=== PATIENT | male | born 1975 | race African-American/Black ===

== ENCOUNTER 2017-12-15 04:50 | Emergency (ER) | payer MEDICAID ==
[~2017-12-15] VITALS: Ht 175.3 cm; Wt 107.0 kg
[2017-12-15] MEDS ORDERED: HYDROCODONE/ACETAMINOPHEN 5/325MG TABLET PO ONE (07:00)
[2017-12-15] MEDS ORDERED: IBUPROFEN 600MG TABLET PO ONE (07:00)
[2017-12-15 08:11] VITALS: BP 128/69
== END 2017-12-15 08:23 | disposition home or self-care (01) ==
LOC: ER 04:50
DX: M10.071 Idiopathic gout, right ankle and foot (principal); Z87.81 Personal history of (healed) traumatic fracture
CPT/HCPCS: 99283; Z7610

== ENCOUNTER 2018-01-08 05:58 | Emergency (ER) | payer MEDICAID ==
[~2018-01-08] VITALS: Ht 297.2 cm; Wt 107.5 kg
[2018-01-08] MEDS ORDERED: ACETAMINOPHEN WITH CODEINE 300/30MG TABLET PO ONE (07:00)
[2018-01-08 09:58] VITALS: BP 144/80
== END 2018-01-08 10:01 | disposition home or self-care (01) ==
LOC: ER 05:58
DX: J06.9 Acute upper respiratory infection, unspecified (principal); M79.1 Myalgia
CPT/HCPCS: 71045; 87804; 99285; Z7610

== ENCOUNTER 2018-01-12 19:04 | Emergency (ER) | payer MEDICAID ==
[~2018-01-12] VITALS: Ht 175.3 cm; Wt 120.0 kg
[2018-01-12] MEDS ORDERED: KETOROLAC 30MG/ML VIAL IM ONE ×2 (20:15→22:15)
[2018-01-12] MEDS ORDERED: DIAZEPAM 5 MG TABLET PO ONE (20:15)
[2018-01-12] MEDS ORDERED: MORPHINE SULFATE 10 MG/ML CPJ IM ONE ×2 (20:15→22:15)
[2018-01-13 01:12] VITALS: BP 116/71
== END 2018-01-13 01:14 | disposition home or self-care (01) ==
LOC: ER 19:31
DX: S29.012A Strain of muscle and tendon of back wall of thorax, initial encounter (principal); X58.XXXA Exposure to other specified factors, initial encounter; Y93.89 Activity, other specified; Y92.89 Other specified places as the place of occurrence of the external cause; Y99.8 Other external cause status; Z98.890 Other specified postprocedural states
CPT/HCPCS: 71250; 96372; 99284; J1885; J2270

== ENCOUNTER 2018-06-27 07:10 | Emergency (ER) | payer MEDICAID ==
[~2018-06-27] VITALS: Ht 172.7 cm; Wt 99.4 kg
[2018-06-27 07:48] VITALS: BP 116/74
[2018-06-27] MEDS ORDERED: IBUPROFEN 600MG TABLET PO ONE (08:15)
[2018-06-27] MEDS ORDERED: HYDROCODONE/ACETAMINOPHEN 5/325MG TABLET PO ONE (08:15)
== END 2018-06-27 09:00 | disposition home or self-care (01) ==
LOC: ER 08:04
DX: M10.9 Gout, unspecified (principal)
CPT/HCPCS: 99283

== ENCOUNTER 2018-10-14 02:09 | Emergency (ER) | payer MEDICAID ==
[~2018-10-14] VITALS: Ht 175.3 cm; Wt 97.1 kg
[2018-10-14] MEDS ORDERED: KETOROLAC 60MG/2ML VIAL IM STA ×2 (04:13→04:25)
[2018-10-14] MEDS ORDERED: METHYLPREDNISOLONE SOD SUCC 125 MG/2 ML VIAL IM STA (04:25)
[2018-10-14 04:38] VITALS: BP 110/66
== END 2018-10-14 06:13 | disposition home or self-care (01) ==
LOC: ER 02:09
DX: M10.071 Idiopathic gout, right ankle and foot (principal)
CPT/HCPCS: 96372; 99283; J1885; J2930

== ENCOUNTER 2018-10-22 23:21 | Emergency (ER) | payer MEDICAID ==
[~2018-10-22] VITALS: Ht 175.3 cm; Wt 89.0 kg
[2018-10-23 00:17] VITALS: BP 123/63
== END 2018-10-23 03:36 | disposition left against medical advice (07) ==
LOC: ER 23:21
DX: Z53.21 Procedure and treatment not carried out due to patient leaving prior to being seen by health care provider (principal)

== ENCOUNTER 2019-07-18 01:10 | Emergency (ER) | payer MEDICAID ==
[~2019-07-18] VITALS: Ht 175.3 cm; Wt 89.0 kg
[2019-07-18] MEDS ORDERED: KETOROLAC 60MG/2ML VIAL IM STA (02:12)
[2019-07-18 03:02] VITALS: BP 120/75
== END 2019-07-18 03:03 | disposition home or self-care (01) ==
LOC: ER 01:10
DX: M10.9 Gout, unspecified (principal); Z98.890 Other specified postprocedural states
CPT/HCPCS: 96372; 99283; J1885

== ENCOUNTER 2019-07-22 16:57 | Emergency (ER) | payer MEDICAID ==
[~2019-07-22] VITALS: Ht 175.3 cm; Wt 88.5 kg
[2019-07-22 17:02] VITALS: BP 133/91
[2019-07-22] MEDS ORDERED: BACITRACIN ZINC OINT UDPKT TOP ONE (17:30)
== END 2019-07-22 18:21 | disposition home or self-care (01) ==
LOC: ER 16:57
DX: S80.211A Abrasion, right knee, initial encounter (principal); M20.012 Mallet finger of left finger(s); Z98.890 Other specified postprocedural states; W01.0XXA Fall on same level from slipping, tripping and stumbling without subsequent striking against object, initial encounter; Y93.89 Activity, other specified; Y92.89 Other specified places as the place of occurrence of the external cause; Y99.8 Other external cause status
CPT/HCPCS: 29130; 73130; 99283

== ENCOUNTER 2020-02-28 05:46 | Emergency (ER) | payer MEDICAID ==
[~2020-02-28] VITALS: Ht 175.3 cm; Wt 91.0 kg
[2020-02-28 05:49] VITALS: BP 158/94
[2020-02-28] MEDS ORDERED: CEFTRIAXONE SODIUM 250 MG/VIAL IM ONE (06:45)
[2020-02-28] MEDS ORDERED: AZITHROMYCIN 500 MG TABLET PO ONE (06:45)
[2020-02-28] MEDS ORDERED: LIDOCAINE HCL 1% 20ML VIAL (Pyxis) INJ INFIL ONE (07:00)
== END 2020-02-28 07:20 | disposition home or self-care (01) ==
LOC: ER 05:46
DX: A54.9 Gonococcal infection, unspecified (principal); A74.9 Chlamydial infection, unspecified; M19.90 Unspecified osteoarthritis, unspecified site; Z87.81 Personal history of (healed) traumatic fracture; Z98.890 Other specified postprocedural states
CPT/HCPCS: 96372; 99283; J0696; J3490

== ENCOUNTER 2020-09-01 02:26 | Emergency (ER) | payer MEDICAID ==
[~2020-09-01] VITALS: Ht 172.7 cm; Wt 91.0 kg
[2020-09-01 02:29] VITALS: BP 103/48
[2020-09-01] MEDS ORDERED: ACETAMINOPHEN 325MG TABLET PO ONE (04:30)
== END 2020-09-01 05:00 | disposition left against medical advice (07) ==
LOC: ER 02:51
DX: R51.9 Headache, unspecified (principal); M54.2 Cervicalgia; Y04.0XXA Assault by unarmed brawl or fight, initial encounter; Y07.04 Female partner, perpetrator of maltreatment and neglect; Y93.89 Activity, other specified; Y92.89 Other specified places as the place of occurrence of the external cause
CPT/HCPCS: 93005; 99283

== ENCOUNTER 2021-09-17 04:26 | Emergency (ER) | payer MEDICAID ==
[~2021-09-17] VITALS: Ht 172.7 cm; Wt 95.2 kg
[2021-09-17] MEDS ORDERED: IBUPROFEN 600MG TABLET PO ONE (07:15)
[2021-09-17] MEDS ORDERED: IBUP-2029 MT (08:24)
[2021-09-17 09:05] VITALS: BP 148/86
== END 2021-09-17 09:06 | disposition home or self-care (01) ==
LOC: ER 04:26
DX: S50.01XA Contusion of right elbow, initial encounter (principal); Z87.81 Personal history of (healed) traumatic fracture; W01.0XXA Fall on same level from slipping, tripping and stumbling without subsequent striking against object, initial encounter; Y93.89 Activity, other specified; Y92.018 Other place in single-family (private) house as the place of occurrence of the external cause
CPT/HCPCS: 73070; 99283

== ENCOUNTER 2021-09-20 22:45 | Emergency (ER) | payer MEDICAID ==
[~2021-09-20] VITALS: Ht 175.3 cm; Wt 91.0 kg
[~2021-09-20 22:45] MED LIST: IBUP-2029 MT
[2021-09-21] MEDS ORDERED: CEFTRIAXONE SODIUM 500 MG/VIAL IM ONE (01:00)
[2021-09-21] MEDS ORDERED: LIDOCAINE HCL 1% 20ML VIAL (Pyxis) INJ INFIL ONE (01:00)
[2021-09-21] MEDS ORDERED: AZITHROMYCIN 500 MG TABLET PO ONE (01:00)
[2021-09-21 02:48] VITALS: BP 122/87
[2021-09-24 04:09] LABS: NEISSERIA GONORRHOEAE NAA Negative (Negative)
== END 2021-09-21 01:45 | disposition home or self-care (01) ==
LOC: ER 22:45
DX: Z20.2 Contact with and (suspected) exposure to infections with a predominantly sexual mode of transmission (principal)
CPT/HCPCS: 87491; 87591; 96372; 99283; J0696; J3490

== ENCOUNTER 2022-09-20 03:07 | Emergency (ER) | payer MEDICAID ==
[~2022-09-20] VITALS: Ht 172.7 cm; Wt 88.0 kg
[2022-09-20 03:28] VITALS: BP 134/84
[2022-09-20] MEDS ORDERED: CETI10TA6 MT (04:12)
[2022-09-20] MEDS ORDERED: DEXAMETHASONE 4MG TABLET PO ONE (04:15)
[2022-09-20] MEDS ORDERED: DEXAMETHASONE 4MG/ML 1ML VIAL IM ONE (05:00)
== END 2022-09-20 04:58 | disposition home or self-care (01) ==
LOC: ER 03:07
DX: R21 Rash and other nonspecific skin eruption (principal)
CPT/HCPCS: 96372; 99283; J1100; J8540; Z7610

== ENCOUNTER 2022-09-22 00:12 | Emergency (ER) | payer MEDICAID ==
[~2022-09-22] VITALS: Ht 175.3 cm; Wt 87.4 kg
[~2022-09-22 00:12] MED LIST changes: +CETI10TA6 MT
[2022-09-22 00:19] VITALS: BP 115/71
== END 2022-09-22 04:34 | disposition left against medical advice (07) ==
LOC: ER 00:12
DX: Z53.21 Procedure and treatment not carried out due to patient leaving prior to being seen by health care provider (principal)
CPT/HCPCS: 99281

== ENCOUNTER 2022-09-25 03:33 | Emergency (ER) | payer MEDICAID ==
[~2022-09-25] VITALS: Ht 172.7 cm; Wt 92.0 kg
[2022-09-25 03:38] VITALS: BP 120/93
[2022-09-25] MEDS ORDERED: DIPHENHYDRAMINE 50MG/ML VIAL IM NR (04:30)
[2022-09-25] MEDS ORDERED: HYDR-3735 PO (04:40)
[2022-09-25] MEDS ORDERED: P50 PO (04:40)
[2022-09-25] MEDS ORDERED: HYDR453.3 TP (04:40)
== END 2022-09-25 05:10 | disposition home or self-care (01) ==
LOC: ER 03:33
DX: L25.9 Unspecified contact dermatitis, unspecified cause (principal)
CPT/HCPCS: 87070; 87430; 96372; 99283; J1200; Z7610

== ENCOUNTER 2022-10-01 05:17 | Emergency (ER) | payer MEDICAID ==
[~2022-10-01] VITALS: Ht 172.7 cm; Wt 93.4 kg
[~2022-10-01 05:17] MED LIST changes: +HYDR-3735 PO; +HYDR453.3 TP; +P50 PO
[2022-10-01] MEDS ORDERED: IBUPROFEN 800MG TABLET PO ONE (06:15)
[2022-10-01] MEDS ORDERED: TOPUD PO (07:01)
[2022-10-01] MEDS ORDERED: AMOX1TAB16 PO (07:12)
[2022-10-01] MEDS ORDERED: IBUPROFEN 400MG TABLET PO SCH (07:30)
[2022-10-01 07:58] VITALS: BP 142/87
== END 2022-10-01 08:01 | disposition home or self-care (01) ==
LOC: ER 05:17
DX: S02.2XXA Fracture of nasal bones, initial encounter for closed fracture (principal); Z79.899 Other long term (current) drug therapy; Y08.89XA Assault by other specified means, initial encounter; Y93.89 Activity, other specified; Y92.89 Other specified places as the place of occurrence of the external cause; Y99.8 Other external cause status
CPT/HCPCS: 70486; 99284

== ENCOUNTER 2022-10-19 03:39 | Emergency (ER) | payer MEDICAID, OTHER ==
[~2022-10-19] VITALS: Ht 172.7 cm; Wt 92.5 kg
[~2022-10-19 03:39] MED LIST changes: +AMOX1TAB16 PO; +TOPUD PO
[2022-10-19 04:25] VITALS: O2SAT 98
[2022-10-19] MEDS ORDERED: COLC0.6C3 MT (04:58)
[2022-10-19] MEDS ORDERED: COLCHICINE 0.6MG TABLET PO ONE (05:00)
[2022-10-19] MEDS ORDERED: KETOROLAC 60MG/2ML VIAL IM ONE (05:00)
[2022-10-19 05:05] VITALS: BP 122/80
[2022-10-19 05:14] VITALS: PULSE 81; RESP 16; TEMP 98.4
== END 2022-10-19 05:00 | disposition home or self-care (01) ==
LOC: ER 03:39
DX: M25.572 Pain in left ankle and joints of left foot (principal); Z98.890 Other specified postprocedural states
CPT/HCPCS: 96372; 99283; J1885; Z7610

== ENCOUNTER 2023-01-02 03:36 | Emergency (ER) | payer MEDICAID, OTHER ==
[~2023-01-02] VITALS: Ht 172.7 cm; Wt 94.4 kg
[~2023-01-02 03:36] MED LIST changes: +COLC0.6C3 MT
[2023-01-02 03:45] VITALS: BP 126/72; PULSE 98; RESP 18; TEMP 98.6; O2SAT 100
== END 2023-01-02 05:45 | disposition left against medical advice (07) ==
LOC: ER 03:36
DX: Z53.21 Procedure and treatment not carried out due to patient leaving prior to being seen by health care provider (principal)
CPT/HCPCS: 99281

== ENCOUNTER 2023-01-04 00:49 | Emergency (ER) | payer OTHER ==
[2023-01-04] MEDS ORDERED: AMOX1TAB16 MT (01:50)
[2023-01-04] MEDS ORDERED: COLC0.6C3 MT (01:50)
[2023-01-04] MEDS ORDERED: TETANUS, DIPHTHERIA, PERTUSSIS VAC/PF 0.5ML (>10YR OLD) IM ONE (02:00)
[2023-01-04] MEDS ORDERED: KETOROLAC 30MG/ML VIAL IM ONE (02:00)
[2023-01-04 02:06] VITALS: BP 133/75; PULSE 86; RESP 17; TEMP 98.2
== END 2023-01-04 02:07 | disposition home or self-care (01) ==
LOC: ER 00:49
DX: S31.159A Open bite of abdominal wall, unspecified quadrant without penetration into peritoneal cavity, initial encounter (principal); I10 Essential (primary) hypertension; W54.0XXA Bitten by dog, initial encounter; Y93.89 Activity, other specified; Y92.89 Other specified places as the place of occurrence of the external cause; Y99.8 Other external cause status
CPT/HCPCS: 99283

== ENCOUNTER 2023-01-16 04:42 | Emergency (ER) | payer OTHER ==
[~2023-01-16] VITALS: Ht 172.7 cm; Wt 97.0 kg
[~2023-01-16 04:42] MED LIST changes: +AMOX1TAB16 MT
[2023-01-16 05:07] VITALS: TEMP 97.9; O2SAT 98
[2023-01-16] MEDS ORDERED: HYDROCODONE/ACETAMINOPHEN 5/325MG TABLET PO ONE (05:30)
[2023-01-16] MEDS ORDERED: IBUPROFEN 600MG TABLET PO ONE (05:30)
[2023-01-16 05:34] VITALS: BP 118/76; PULSE 76; RESP 16
[2023-01-16 05:56] LABS: BASOPHILS % 0.9 % (0.0-2.0); EOSINOPHILS % 5.7 % (0.0-5.0); HEMATOCRIT. 39.9 % (42.0-52.0); HEMOGLOBIN. 13.4 g/dL (14.0-18.0); LYMPHOCYTES % 28.7 % (20.0-50.0); MEAN CORPUSCULAR HGB CONC 33.7 g/dL (31.0-37.0); MEAN CORPUSCULAR VOLUME 80.1 fL (80.0-94.0); MEAN PLATELET VOLUME 9.5 fl (7.4-10.4); MONOCYTES % 5.7 % (2.0-8.0); PLATELET 210 x1000/uL (130-400); RED BLOOD CELL COUNT 4.98 mill/uL (4.7-6.1); RED CELL DISTRIBUTION WIDTH 14.3 % (11.6-14.6); WHITE BLOOD COUNT 8.8 x1000/uL (4.5-11.0)
[2023-01-16 05:58] LABS: CLARITY URINE CLEAR (CLEAR); COLOR URINE YELLOW (YELLOW); GLUCOSE URINE NEGATIVE (NEGATIVE); KETONES URINE NEGATIVE (NEGATIVE); LEUKOCYTE ESTERASE URINE NEGATIVE (NEGATIVE); NITRITE URINE NEGATIVE (NEGATIVE); OCCULT BLOOD URINE NEGATIVE (NEGATIVE); PH URINE 6.5 (4.5-8.0); PROTEIN URINE NEGATIVE (NEGATIVE); SPECIFIC GRAVITY URINE 1.022 (1.005-1.030); UROBILINOGEN URINE 0.2 E.U./dL (0.2-1.0)
[2023-01-16 06:05] LABS: CHLORIDE 108 mEq/L (98-107); INDEX HEMOLYSI 2 (1-3); INDEX ICTERIC 1 (1-4); INDEX LIPEMIC 1 (1-3); POTASSIUM 3.8 mEq/L (3.5-5.1); SODIUM 137 mEq/L (136-145)
[2023-01-16 06:13] LABS: ALANINE AMINOTRANSFERASE 46 IU/L (13-61); ALBUMIN 3.6 g/dL (3.4-5.0); ASPARTATE AMINOTRANSFERASE 33 IU/L (15-37); BILIRUBIN TOTAL 0.2 mg/dL (0.1-1.0); CALCIUM 8.2 mg/dL (8.5-10.1); CARBON DIOXIDE 25 mEq/L (21-32); CREATININE 1.4 mg/dL (0.6-1.3); GLUCOSE 101 mg/dL (70-105); PROTEIN TOTAL 7.7 g/dL (6.0-8.3); UREA NITROGEN BLOOD 25 mg/dL (7-21)
[2023-01-16] MEDS ORDERED: KETOROLAC 60MG/2ML VIAL IM ONE (06:30)
[2023-01-16] MEDS ORDERED: IBUP-2029 MT (06:40)
[2023-01-16] MEDS ORDERED: HYDR-4001 MT (06:40)
== END 2023-01-16 07:12 | disposition home or self-care (01) ==
LOC: ER 04:42
DX: M10.00 Idiopathic gout, unspecified site (principal); M25.562 Pain in left knee
CPT/HCPCS: 80053; 81003; 84550; 85025; 36415; 73080; 73562; 99284; J1885; Z7610

== ENCOUNTER 2023-05-04 01:14 | Emergency (ER) | payer MEDICAID, OTHER ==
[~2023-05-04] VITALS: Ht 172.7 cm; Wt 93.0 kg
[~2023-05-04 01:14] MED LIST changes: +HYDR-4001 MT
[2023-05-04 01:51] VITALS: BP 107/64; PULSE 107; RESP 14; TEMP 98.2; O2SAT 98
[2023-05-04] MEDS ORDERED: KETOROLAC 30MG/ML VIAL IM ONE (02:30)
== END 2023-05-04 04:50 | disposition left against medical advice (07) ==
LOC: ER 01:14
DX: S66.511A Strain of intrinsic muscle, fascia and tendon of left index finger at wrist and hand level, initial encounter (principal); W18.30XA Fall on same level, unspecified, initial encounter; Y93.67 Activity, basketball; Y92.89 Other specified places as the place of occurrence of the external cause; Y99.8 Other external cause status
CPT/HCPCS: 73110; 73130; 99284

== ENCOUNTER 2023-10-05 10:52 | Emergency (ER) | payer MEDICAID, OTHER ==
[~2023-10-05] VITALS: Ht 172.7 cm; Wt 88.5 kg
[2023-10-05 11:03] VITALS: O2SAT 99
[2023-10-05] MEDS ORDERED: ALLO100T MT (11:52)
[2023-10-05] MEDS: HYDROCODONE/ACETAMINOPHEN 5/325MG TABLET PO ONE (12:15)
[2023-10-05] MEDS ORDERED: COLCHICINE 0.6MG TABLET PO ONE (12:15)
[2023-10-05] MEDS: COLCHICINE 0.6MG TABLET PO ONE (12:15)
[2023-10-05] MEDS: COLCHICINE 0.6MG TABLET PO NR (12:23)
[2023-10-05 12:24] VITALS: BP 121/51; PULSE 78; RESP 18; TEMP 98.2
== END 2023-10-05 12:27 | disposition home or self-care (01) ==
LOC: ER 10:52
DX: M25.562 Pain in left knee (principal); J45.909 Unspecified asthma, uncomplicated
CPT/HCPCS: 99283

== ENCOUNTER 2023-10-13 03:45 | Emergency (ER) | payer MEDICAID, OTHER ==
[~2023-10-13] VITALS: Ht 175.3 cm; Wt 88.0 kg
[~2023-10-13 03:45] MED LIST changes: +ALLO100T MT
[2023-10-13 04:02] VITALS: O2SAT 99
[2023-10-13] MEDS ORDERED: COLC0.6C3 MT (06:26)
[2023-10-13] MEDS ORDERED: ALLO100T MT (06:26)
[2023-10-13] MEDS ORDERED: P50 PO (06:27)
[2023-10-13 07:02] VITALS: BP 122/79; PULSE 67; RESP 17
[2023-10-13] MEDS: KETOROLAC 30MG/ML VIAL IM ONE (07:02)
[2023-10-13 07:03] VITALS: TEMP 98.7
[2023-10-13] MEDS: ACETAMINOPHEN 325MG TABLET PO ONE (07:03)
== END 2023-10-13 07:06 | disposition home or self-care (01) ==
LOC: ER 03:45
DX: M17.0 Bilateral primary osteoarthritis of knee (principal)
CPT/HCPCS: 99283; 96372; J1885

== ENCOUNTER 2024-04-29 03:15 | Emergency (ER) | payer MEDICAID ==
[~2024-04-29] VITALS: Ht 175.3 cm; Wt 83.8 kg
[2024-04-29 03:51] VITALS: O2SAT 100
[2024-04-29] MEDS: LIDOCAINE HCL/PF 1% 10 MG/ML 5ML VIAL INFIL ONE (04:00)
[2024-04-29] MEDS: BACITRACIN ZINC OINT UDPKT TOP ONE (04:00)
[2024-04-29] MEDS: KETOROLAC 15MG/ML VIAL IM ONE (04:15)
[2024-04-29] MEDS ORDERED: AMOX1TAB16 MT (04:38)
[2024-04-29 04:50] VITALS: BP 102/67; PULSE 80; RESP 18; TEMP 36.78072; O2SAT 100
== END 2024-04-29 04:50 | disposition home or self-care (01) ==
LOC: ER 03:30
DX: L03.011 Cellulitis of right finger (principal); Z79.899 Other long term (current) drug therapy
CPT/HCPCS: 10060; 96372; 99283; J3490; Z7610 ×5

== ENCOUNTER 2024-12-02 06:45 | Emergency (ER) | payer MEDICAID ==
[~2024-12-02] VITALS: Ht 175.3 cm; Wt 85.6 kg
[2024-12-02 06:48] VITALS: TEMP 37; O2SAT 99
[2024-12-02] MEDS ORDERED: SULF1TAB48 PO (07:08)
[2024-12-02] MEDS ORDERED: IBUP-2028 PO (07:08)
[2024-12-02] MEDS ORDERED: CEPH500T PO (07:08)
[2024-12-02] MEDS: IBUPROFEN 400MG TABLET PO ONE (07:11)
[2024-12-02 07:17] VITALS: BP 130/85; PULSE 84; RESP 22; O2SAT 98
== END 2024-12-02 07:17 | disposition home or self-care (01) ==
LOC: ER 06:45
DX: L03.211 Cellulitis of face (principal); Z79.1 Long term (current) use of non-steroidal anti-inflammatories (NSAID); Z79.52 Long term (current) use of systemic steroids; Z79.899 Other long term (current) drug therapy; W57.XXXA Bitten or stung by nonvenomous insect and other nonvenomous arthropods, initial encounter; Y93.89 Activity, other specified; Y92.89 Other specified places as the place of occurrence of the external cause; Y99.8 Other external cause status
CPT/HCPCS: 99282

== ENCOUNTER 2025-02-07 18:51 | Emergency (ER) | payer MEDICAID ==
[~2025-02-07] VITALS: Ht 172.7 cm; Wt 85.0 kg
[~2025-02-07 18:51] MED LIST changes: +CEPH500T PO; +IBUP-1455 MT; +IBUP-2028 PO; -IBUP-2029 MT; +SULF1TAB48 PO
[2025-02-07 18:54] VITALS: BP 180/90; PULSE 90; RESP 16; TEMP 36.8; O2SAT 98
== END 2025-02-07 19:18 | disposition left against medical advice (07) ==
LOC: ER 18:51
DX: R20.8 Other disturbances of skin sensation (principal)
CPT/HCPCS: 99283